=== PATIENT | male | born 1990 | race Two or more races ===

== ENCOUNTER 2022-12-26 01:53 | Emergency (ER) | payer BC ==
[2022-12-26] MEDS ORDERED: Ketorolac 30 MG/ML SDV IVPUSH ONE (03:40)
[2022-12-26] MEDS ORDERED: Sodium Chloride 0.9% 10 ML Syringe FLUSH PRN (03:40)
[2022-12-26] MEDS ORDERED: Sodium Chloride 0.9% 2.5 ML Syringe FLUSH PRN (03:40)
[2022-12-26 04:21] LABS: CARBON DIOXIDE,CO2 20.9 mmol/L (21.0-32.0); POTASSIUM,K 3.6 mmol/L (3.5-5.1)
[2022-12-26] MEDS ORDERED: Acetaminophen/HYDROcodone 325-5 MG Tab PO ONE (06:28)
== END 2022-12-26 06:50 | disposition critical access hospital (66) ==
LOC: MW.ED 01:53
DX: N13.2 Hydronephrosis with renal and ureteral calculous obstruction (principal); Z72.0 Tobacco use
CPT/HCPCS: 36415; 74176; 80048; 81001; 85025; 87086; 96374; 99285; A9270; J1885; J3490; 99284